=== PATIENT | female | born 1990 | race Caucasian/White ===

== ENCOUNTER 2023-04-14 01:42 | Emergency (ER) | payer OTHER, SELFPAY ==
[2023-04-14 02:06] VITALS: BP 151/85; PULSE 90; RESP 20; TEMP 36.6; O2SAT 98; BMI 30.2
[2023-04-14 05:52] VITALS: BP 155/97; PULSE 81; RESP 20; TEMP 36.8; O2SAT 97
--- NOTE | 2023-04-14 05:53 | PC.NURSE ---
upon pt re-assessment pt reported headache and chest pain, labs ordered and EKG
[2023-04-14 06:16] LABS: MANUAL DIFF FLAG NO
[2023-04-14 06:18] LABS: Basophils Percent Auto 0.4 % (0-2); Eosinophils Percent Auto 0.5 % (0-4); Hematocrit 42.5 % (37.0-47.0); Hemoglobin 13.8 g/dl (12.0-16.0); Imm Gran Abs Auto 0.03 X10*3/uL (0.00-0.03); Imm Gran Pct Auto 0.4 % (0.0-0.4); Lymphocytes Absolute Auto 1.4 X10*3/uL (1.2-4.9); Lymphocytes Percent Auto 17.7 % (20-40); Mean Corpuscular HGB Conc 32.5 g/dl (31.0-35.0); Mean Corpuscular Hemoglobin 32.2 pg (27.0-33.0); Mean Corpuscular Volume 99.1 fL (80.0-98.0); Mean Platelet Volume 11.2 fL (9.4-12.3); Monocytes Absolute Auto 0.6 X10*3/uL (0.1-1.2); Monocytes Percent Auto 7.5 % (2-11); Neutrophils Absolute Auto 5.7 x10*3/uL (2.0-8.3); Neutrophils Percent Auto 73.5 % (45-73); Platelet Count 138 X10*3/uL (160-400); Red Blood Count 4.29 X10*6/uL (4.20-5.50); Red Cell Distribution Width 16.2 % (11.0-16.0); White Blood Count 7.7 X10*3/uL (4.8-10.8)
[2023-04-14 06:31] LABS: Alanine Aminotransferase 77 U/L (0-31); Albumin Level 4.5 g/dL (3.5-5.0); Alkaline Phosphatase 76 U/L (39-117); Anion Gap 15 (12-20); Aspartate Amino Transferase 46 U/L (5-31); Bilirubin Total 0.5 mg/dL (0.0-1.0); Blood Urea Nitrogen 13 mg/dL (9-16); Calcium 8.7 mg/dL (8.4-10.2); Carbon Dioxide 22 mmol/L (22-29); Chloride 105 mmol/L (96-108); Creatinine Clr Calc Pharmacy 92.2; Estimated Glomerular Filt Rate > 60; Glucose Fasting 100 mg/dL (60-99); Sodium 138 mmol/L (135-145); Total Protein 8.5 g/dL (6.5-8.0)
[2023-04-14 06:38] LABS: Troponin-I High Sensitivity < 2.7 ng/L (<3.5-17.0)
[2023-04-14 06:54] VITALS: PULSE 99; RESP 16; O2SAT 97
--- NOTE | 2023-04-14 06:55 | PC.NURSE ---
pt changed into hospital gown. reporting R. sided cp. placed on heart monitor. nsr. lung sounds cta. resp even and unlabored. pt reports hx anxiety/panic attacks; has been switching meds with pcp recently. pt does not think sx are related to her anxiety. vss. call jefferson within reach. awaiting primary eval by ed provider.
--- NOTE | 2023-04-14 08:18 | ED.GENADULT ---
HPI - General Adult General Chief complaint: Anxiety Stated complaint: dizziness, light headed Time Seen by Provider: 04/14/23 06:58 Source: patient Mode of arrival: ambulatory Limitations: no limitations History of Present Illness HPI narrative: Patient is a 32-year-old female presenting to the emergency department with complaint of headache and feeling shaky. States she was feeling shaky yesterday and symptoms worsened while here. States she initially felt symptoms were similar to a panic attack but is complaining of ongoing shakiness, chest tightness, and headache. Denies headache worst at onset, denies worst headache of life. Denies headache worse with standing or worse in the morning. Denies fevers or weight loss. Denies chest pain or palpitations. Denies abdominal pain, nausea, vomiting, diarrhea. Denies recent calf pain or swelling. Denies history of asthma. MD complaint: chest tightness Onset (ago): hour(s) Location: head and chest Severity: moderate Quality: aching Pain Consistency: constant Associated symptoms: other (Shakiness) Treatments prior to arrival: none Related Data Allergies Allergy/AdvReac Type Severity Reaction Status Date / Time azithromycin [AZITHROMYCIN] Allergy Unknown RASH Unverified 01/13/20 19:25 erythromycin base Allergy Unknown RASH Unverified 01/13/20 19:25 [ERYTHROMYCIN BASE] Review of Systems Review of Systems: As per HPI. Yes all other systems are reviewed and are negative Constitutional: Constitutional: Reports as per HPI [facility] Social History Social History Advance Directives: Yes Advance Directives Information Provided: Yes Advance Directives on File: No Physical Exam ED Vital Signs: Vital Signs - 24 hr 04/14/23 02:06 04/14/23 05:52 04/14/23 06:54 Temperature 97.8 F 98.2 F Pulse Rate 90 81 99 Respiratory Rate 20 20 16 Blood Pressure 151/85 H 155/97 H Pulse Oximetry 98 97 97 Oxygen Delivery Method Room Air Room Air Room Air 04/14/23 09:21 Temperature Pulse Rate 80 Respiratory Rate 16 Blood Pressure 153/91 H Pulse Oximetry 98 Oxygen Delivery Method Room Air BMI result Body Mass Index 30.2 Vital signs have been reviewed and appear to be correct. Blood pressure elevated. Heart rate normal. Respiratory rate normal. Temperature normal. Oxygen saturation normal. Const General: cooperative, healthy appearing and no acute distress Orientation/consciousness: oriented to person, oriented to place, oriented to time and patient oriented x3 Limitations: no limitations HENWY Head: Yes normocephalic and Yes atraumatic Ears: external ears normal General nose exam: Normal external nose present Face and sinus: Yes face symmetric Mouth: oropharynx normal and moist mucous membranes Throat: Yes uvula midline Eyes Pupils: Equal, round and reactive pupils present Neck Neck: Yes normal visual inspection, Yes no meningeal signs and Yes supple Resp Effort & Inspection: normal respiratory effort and able to speak in complete sentences Auscultation: clear to auscultation bilaterally Cardio Rate: regular rate Rhythm: regular rhythm Heart sounds: S1 normal heart sound present and S2 normal heart sound present GI Palpation (GI): Soft to palpation and nontender Auscultation: normoactive bowel sounds General: Yes no CVA tenderness Back/Spine/Pelvis Back: no CVA tenderness Skin General skin exam: elasticity normal and turgor normal Neuro General: oriented to person, oriented to place, oriented to time, patient oriented x3, gait normal, tone normal, moves all extremities, Normal light touch and pain sensation, no meningeal signs, no focal motor deficits, CN's II-XI intact bilaterally and deep tendon reflexes 2+ bilaterally Cranial nerves: Yes Equal, round and reactive pupils present Cognition (Neuro): normal cognition Motor exam (neuro): 5/5 motor strength present throughout, Pronator motor function not present, Normal motor muscle tone present throughout and Motor abnormalities not present Sensory Exam: Normal double simultaneous stimulation for sensation Extrem General: Yes full ROM, Yes no pedal edema and Yes no calf tenderness Psych Mental Status: mental status grossly normal Affect: normal affect Thought process: Normal thought process present Medications Administered Discontinued Medications Generic Name Dose Route Start Last Admin Trade Name Tylerq PRN Reason Stop Dose Admin Diphenhydramine HCl 25 mg 04/14/23 08:39 04/14/23 09:20 Diphenhydramine Hcl 50 Mg/Ml Vial IVPUSH 04/14/23 08:40 25 mg ONCE ONE Administration Sodium Chloride 1,000 mls @ 999 mls/hr 04/14/23 08:45 04/14/23 10:26 Ns IV 04/14/23 09:45 Infused .Q1H1M GLEN Infusion Ketorolac Tromethamine 15 mg 04/14/23 09:51 04/14/23 10:26 Ketorolac Tromethamine 15 Mg/Ml Vial IVPUSH 04/14/23 09:52 15 mg ONCE ONE Administration Metoclopramide HCl 10 mg 04/14/23 08:37 04/14/23 09:21 Metoclopramide Hcl 10 Mg/2 Ml Vial IVPUSH 04/14/23 08:38 10 mg ONCE ONE Administration Medical Decision Making Medical Decision Making [facility] Narrative: Patient is a 32-year-old female presenting to the emergency department with complaint of headache and feeling shaky. On exam patient is awake, A+Ox3, VS WNL, afebrile, normal neurological exam without focal deficits, physical exam findings as above. Given reported symptoms and physical exam findings, initial differential includes ACS, anxiety, viral illness, tension headache, . Labs notable for no leukocytosis, no anemia, no significant electrolyte abnormalities, negative HCG, negative troponin x2. Swabs for flu and COVID both negative. EKG shows sinus rhythm with frequent PVCs, RBBB. HEART score 1. Patient reports improvement in symptoms after IV fluids and medications in the ED. Feel patient is stable for discharge home, likely anxiety. Instructed patient to follow-up with primary care provider. Will refer to cardiology for ongoing symptoms. Return precautions discussed at bedside. Patient verbalized understanding of and agreement with plan. Differential Diagnosis Differential Diagnoses: The differential diagnosis associated with the presentation includes As per MDM. Lab Data [facility] Lab Attestation statement: I reviewed the patient's lab results. As per [facility]. 04/14/23 06:10 04/14/23 06:10 Labs: Lab Results 04/14/23 04/14/23 Range/Units 06:10 09:11 WBC 7.7 (4.8-10.8) X10*3/uL RBC 4.29 (4.20-5.50) X10*6/uL Hgb 13.8 (12.0-16.0) g/dl Hct 42.5 (37.0-47.0) % MCV 99.1 H (80.0-98.0) fL MCH 32.2 (27.0-33.0) pg MCHC 32.5 (31.0-35.0) g/dl RDW 16.2 H (11.0-16.0) % Plt Count 138 L (160-400) X10*3/uL MPV 11.2 (9.4-12.3) fL Immature Gran % (Auto) 0.4 (0.0-0.4) % Neut % (Auto) 73.5 H (45-73) % Lymph % (Auto) 17.7 L (20-40) % [place] % (Auto) 7.5 (2-11) % Eos % (Auto) 0.5 (0-4) % Baso % (Auto) 0.4 (0-2) % Lymph # (Auto) 1.4 (1.2-4.9) X10*3/uL [place] # (Auto) 0.6 (0.1-1.2) X10*3/uL Eos # (Auto) 0.0 (0.0-0.4) X10*3/uL Baso # (Auto) 0.0 (0.0-0.2) X10*3/uL Abs Immat Gran (auto) 0.03 (0.00-0.03) X10*3/uL Absolute Neuts (auto) 5.7 (2.0-8.3) x10*3/uL Absolute Nucleated RBC 0.000 (0.0-0.012) X10*3/uL Nucleated RBC % (auto) 0.0 (0.0-0.2) /100WBC Sodium 138 (135-145) mmol/L Potassium 4.0 (3.3-5.1) mmol/L Chloride 105 (96-108) mmol/L Carbon Dioxide 22 (22-29) mmol/L Anion Gap 15 (12-20) BUN 13 (9-16) mg/dL Creatinine 0.79 (0.5-1.4) mg/dL Estim Creat Clear Calc 92.2 Estimated GFR > 60 Fasting Glucose 100 H (60-99) mg/dL Calcium 8.7 (8.4-10.2) mg/dL Total Bilirubin 0.5 (0.0-1.0) mg/dL AST 46 H (5-31) U/L ALT 77 H (0-31) U/L Alkaline Phosphatase 76 (39-117) U/L Troponin I High Sens < 2.7 < 2.7 (<3.5-17.0) ng/L Total Protein 8.5 H (6.5-8.0) g/dL Albumin 4.5 (3.5-5.0) g/dL Beta HCG, Quant < 2 mIU/mL COVID-19 (SEJAL) Negative (Negative) COVID-19 Clin Com See Note Influenza Type A (NAJMA) Negative (Negative) Influenza Type B (NAJMA) Negative (Negative) Influenza A & B Note See Note Independent Interpretation I performed an independent interpretation of an: EKG (sinus rhythm with frequent PVCs, RBBB, rate 81bpm, normal PT interval) External Record Review External record reviewed: Inpatient record, Office record and Outpatient record Scores Heart Score History: -0- slightly suspicious ECG: -1- non specific repolarization disturbance Age: -0- < or = 45 Risk factory: -0- no risk factors known Troponin: -0- < or = normal limit Score: 1 Risk: 1.7% Discharge Plan Discharge Clinical Impression: Acute anxiety, Headache Patient Disposition: Home, Self-Care Instructions: Acute Headache (DC), Panic Disorder (ED) Additional Instructions: You have been evaluated in the emergency department today for headache and chest tightness. Your evaluation did not show evidence of medical conditions requiring emergent intervention at this time, and your pain improved with medication in the ED. We recommend you take 600 mg ibuprofen every 6 hours or Tylenol 650 mg every 6 hours as needed for pain. If needed, you can alternate these medications so that you take 1 medication every 3 hours. For instance, at noon take ibuprofen, then at 3:00 p.m. take Tylenol, then at 6:00 p.m. take ibuprofen. Please follow-up with your primary care provider within 2 days. Return to the emergency department if you experience worsening or uncontrolled pain, vision changes, recurrent vomiting, difficulty with normal activities, abnormal behavior, difficulty walking, numbness, weakness, or any other concerning symptoms. Follow up with cardiology for any ongoing symptoms. Referrals: [facility] Cardiovascular Services [Provider Group]
[2023-04-14] MEDS: 0.9 % Sodium Chloride 1,000 ML 999 ML IV (09:20)
[2023-04-14] MEDS: diphenhydrAMINE HCL 50 MG/ML VIAL 25 MG IVPUSH (09:20)
[2023-04-14 09:21] VITALS: BP 153/91; PULSE 80; RESP 16; O2SAT 98
[2023-04-14] MEDS: Metoclopramide HCl 10 MG/2 ML VIAL IVPUSH (09:21)
[2023-04-14 09:33] LABS: COVID-19 Test Negative (Negative); IDNOW Serial# 9DB6401D
[2023-04-14 09:43] LABS: HCG Quantitative < 2 mIU/mL; Troponin-I High Sensitivity < 2.7 ng/L (<3.5-17.0)
[2023-04-14 09:54] LABS: IDNOW Serial# 58CA691E; Influenza A Negative (Negative); Influenza B2 Negative (Negative)
--- NOTE | 2023-04-14 10:02 | ECG_ITS ---
Test Reason : CHEST PAIN Blood Pressure : / mmHG Vent. Rate : 081 BPM Atrial Rate : 081 BPM P-R Int : 136 ms QRS Dur : 134 ms QT Int : 426 ms P-R-T Axes : 025 079 089 degrees QTc Int : 494 ms Sinus rhythm with frequent Premature ventricular complexes Right bundle branch block Cannot rule out Inferior infarct , age undetermined Abnormal ECG No previous ECGs available Referred By: Nelly Lewis Electronically Signed By:CALLI TIJERINA MD
[2023-04-14] MEDS: Ketorolac Tromethamine 15 MG/ML VIAL IVPUSH (10:26)
== END 2023-04-14 11:16 | disposition home or self-care (01) ==
PROVIDERS: Registered Nurse Emergency; Emergency Provider Emergency Medicine
DX: F41.1 Generalized anxiety disorder (principal); F43.0 Acute stress reaction; R51.9 Headache, unspecified; Z11.52 Encounter for screening for COVID-19; Z20.822 Contact with and (suspected) exposure to COVID-19; Z79.899 Other long term (current) drug therapy
CPT/HCPCS: 36415; 80053; 84484; 84702; 85025; 87502; 87635; 93005; 96361; 96374; 96375; 99284; J1200; J1885; J2765

== ENCOUNTER → 2023-04-14 10:02 | Outpatient (BNV) | payer OTHER, SELFPAY | PROVIDERS: Emergency Provider Emergency Medicine; Visit Provider Internal Medicine Cardiovascular Disease | DX: R42 Dizziness and giddiness (principal) | CPT/HCPCS: 93010 ==

== ENCOUNTER 2024-08-10 17:51 | Emergency (ER) | payer OTHER, SELFPAY ==
--- NOTE | ~2024-08-10 | CT_ITS ---
CLINICAL HISTORY: r flank pain CT abdomen and pelvis without contrast Comparison: None Findings: No consolidation or effusion. Cholecystectomy. No biliary duct dilatation. Enlarged heterogeneous spleen measuring 18 cm in the craniocaudal dimension with diffuse hypodensities in the parenchyma. Left kidney is absent. No hydronephrosis or urolithiasis of the right kidney. Liver, pancreas, and adrenal glands are within normal limits. No bowel obstruction, pneumoperitoneum, or pneumatosis. Normal appendix. Small fat containing umbilical hernia. Uterus is deviated to the right. Urinary bladder is underdistended. Trace free fluid in the pelvis, likely physiologic. No acute fracture. IMPRESSION: Enlarged heterogeneous spleen (18 cm) with diffuse hypodensities. Differential considerations include lymphoproliferative disorder, reactive splenomegaly, splenic sequestration. This document has been electronically signed by: Devorah Dobson MD on 08/10/2024 21:57:16
[2024-08-10 17:59] VITALS: BP 136/72; PULSE 64; O2SAT 97
[2024-08-10 18:10] VITALS: BP 135/79; PULSE 86; RESP 16; TEMP 36.6; O2SAT 98; BMI 31.3
--- NOTE | 2024-08-10 18:28 | ED.ABDPAIN ---
HPI - Abdominal Pain General Chief Complaint: Abdominal Pain Stated Complaint: R flank pain Time Seen by Provider: 08/10/24 18:07 Source: patient Mode of arrival: ambulatory Limitations: no limitations History of Present Illness ED Provider: HPI narrative: Patient's history of remote kidney stone complaining of pain in the right flank area took ibuprofen at home without much relief pain is radiating to the right lower abdomen no fever no chills no dysuria no hematuria Related Data Previous Rx's ?Medication ?Instructions ?Recorded nitrofurantoin 100 mg PO BID 7 days #14 caps 08/10/24 monohydrate/macrocrystals 100 mg capsule (Macrobid) Allergies Allergy/AdvReac Type Severity Reaction Status Date / Time sulfamethoxazole Allergy Severe Anaphylaxis Verified 08/10/24 18:12 [From Bactrim] trimethoprim [From Bactrim] Allergy Severe Anaphylaxis Verified 08/10/24 18:12 azithromycin [AZITHROMYCIN] Allergy Unknown RASH Verified 08/10/24 18:12 erythromycin base Allergy Unknown RASH Verified 08/10/24 18:12 [ERYTHROMYCIN BASE] Review of Systems Review of Systems Yes all other systems are reviewed and are negative Physical Exam ED Vital Signs: Vital Signs - 24 hr 08/10/24 18:10 08/10/24 20:17 08/10/24 22:11 Temperature 97.8 F 98.0 F 98.2 F Pulse Rate 86 58 65 Respiratory Rate 16 16 16 Blood Pressure 135/79 115/60 127/73 Pulse Oximetry 98 99 98 Oxygen Delivery Method Room Air Room Air Room Air 08/10/24 22:15 Temperature 98.2 F Pulse Rate 65 Respiratory Rate 16 Blood Pressure 127/73 Pulse Oximetry 98 Oxygen Delivery Method Room Air BMI result Body Mass Index 31.3 Appearance: Alert. Oriented X3. No acute distress. Eyes: PERRLA, No Nystagmus ENT: Pharynx normal. Oral Mucosa moist Neck: Normal inspection. Neck supple. CVS: Normal heart rate and rhythm. Pulses normal. Respiratory: No respiratory distress. Equal air entry bilateral, no wheezing/rales/rhonchi Abdomen: Soft and nontender. Bowel sounds are present, no mass palpable, right CVA tenderness Skin: Skin warm and dry. Normal skin color. Normal skin turgor. Extremities: No lower extremity edema. No calf tenderness Neuro: Oriented X 3. No motor deficit. No sensory deficit.No cerebellar signs , cranial nerves II-XII intact Medical Decision Making Medical Decision Making [facility] Narrative: Patient's right flank pain with history of remote kidney stone workup showed thrombocytopenia with 84k and splenomegaly no kidney stone or cyst was seen patient advised to follow up with PCP will treat for UTI Differential Diagnosis Differential Diagnoses: The differential diagnosis associated with the presentation includes Lab Data [facility] Lab Attestation statement: I reviewed the patient's lab results. 08/10/24 18:53 08/10/24 18:53 Labs: Lab Results 08/10/24 08/10/24 Range/Units 18:31 18:53 WBC 5.4 (4.8-10.8) X10*3/uL RBC 3.64 L (4.20-5.50) X10*6/uL Hgb 11.9 L (12.0-16.0) g/dl Hct 34.2 L (37.0-47.0) % MCV 94.0 (80.0-98.0) fL MCH 32.7 (27.0-33.0) pg MCHC 34.8 (31.0-35.0) g/dl RDW 12.7 (11.0-16.0) % Plt Count 84 L D (160-400) X10*3/uL MPV 10.8 (9.4-12.3) fL Immature Gran % (Auto) 0.2 (0.0-0.4) % Neut % (Auto) 69.3 (45-73) % Lymph % (Auto) 21.2 (20-40) % [place] % (Auto) 7.4 (2-11) % Eos % (Auto) 1.5 (0-4) % Baso % (Auto) 0.4 (0-2) % Lymph # (Auto) 1.1 L (1.2-4.9) X10*3/uL [place] # (Auto) 0.4 (0.1-1.2) X10*3/uL Eos # (Auto) 0.1 (0.0-0.4) X10*3/uL Baso # (Auto) 0.0 (0.0-0.2) X10*3/uL Abs Immat Gran (auto) 0.01 (0.00-0.03) X10*3/uL Absolute Neuts (auto) 3.7 (2.0-8.3) x10*3/uL Absolute Nucleated RBC 0.000 (0.0-0.012) X10*3/uL Nucleated RBC % (auto) 0.0 (0.0-0.2) /100WBC Smear Tech's Comments VERIFIED Sodium 141 (135-145) mmol/L Potassium 3.8 (3.3-5.1) mmol/L Chloride 108 (96-108) mmol/L Carbon Dioxide 25 (22-29) mmol/L Anion Gap 12 (12-20) BUN 7 L (9-16) mg/dL Creatinine 0.80 (0.5-1.4) mg/dL Estim Creat Clear Calc 91.9 Estimated GFR > 60 Random Glucose 115 (60-115) mg/dL Calcium 8.7 (8.4-10.2) mg/dL Lipase 22 (8-78) U/L Urine Color Yellow Urine Appearance Clear Urine pH 7.5 (5.0-9.0) Ur Specific [place] 1.010 (1.005-1.025) Urine Protein Negative (Neg-Trace) mg/dL Urine Glucose (UA) Negative (Negative) mg/dL Urine Ketones Negative (Negative) mg/dL Urine Blood Negative (Negative) Urine Nitrite Negative (Negative) Ur Leukocyte Esterase Large (3+) H (Negative) Urine RBC 0-2 (0-2) /HPF Urine WBC 11-20 H (0-5) /HPF Ur Squamous Epith Cells 3-5 (0-2) /HPF Urine Bacteria None Seen (None Seen) Hyaline Casts 0-2 (0-2) /LPF Urine Test NEGATIVE (NEGATIVE) Independent Interpretation I performed an independent interpretation of an: CT Scan Radiology Impression Discussion of test interpretation with radiology: I have reviewed the radiologist's reading. Radiologist Impression: [address] [address] [address] Scan Report Signed Patient: BriiJuly MR#: [id number] : 1990 Acct:[id number] Age/Sex: 33 / F ADM Date: 08/10/24 Loc: HO.ED Attending Dr: Ordering Physician: Duke Liu MD Date of Service: 08/10/24 Procedure(s): CT abdomen pelvis wo IV con Accession Number(s): [id number] cc: Physician,None ; Duke Liu MD~ Report Number: [id number]: Total DLP = 577.00 mGy-cm CLINICAL HISTORY: r flank pain CT abdomen and pelvis without contrast Comparison: None Findings: No consolidation or effusion. Cholecystectomy. No biliary duct dilatation. Enlarged heterogeneous spleen measuring 18 cm in the craniocaudal dimension with diffuse hypodensities in the parenchyma. Left kidney is absent. No hydronephrosis or urolithiasis of the right kidney. Liver, pancreas, and adrenal glands are within normal limits. No bowel obstruction, pneumoperitoneum, or pneumatosis. Normal appendix. Small fat containing umbilical hernia. Uterus is deviated to the right. Urinary bladder is underdistended. Trace free fluid in the pelvis, likely physiologic. No acute fracture. IMPRESSION: Enlarged heterogeneous spleen (18 cm) with diffuse hypodensities. Differential considerations include lymphoproliferative disorder, reactive splenomegaly, splenic sequestration. This document has been electronically signed by: Devorah Dobson MD on 08/10/2024 21:57:16 Medications Administered Discontinued Medications Generic Name Dose Route Start Last Admin Trade Name Freq PRN Reason Stop Dose Admin Nitrofurantoin Macrocrystals 100 mg 08/10/24 20:23 08/10/24 20:41 Nitrofurantoin Monohyd/M-Cryst 100 Mg Capsule PO 08/10/24 20:24 100 mg ONCE ONE Administration Oxycodone HCl 5 mg 08/10/24 20:23 08/10/24 20:41 Oxycodone Hcl Immed Release 5 Mg Tablet PO 08/10/24 20:24 5 mg ONCE ONE Administration Discharge Plan Discharge Clinical Impression: UTI (urinary tract infection) Patient Disposition: Home, Self-Care Instructions: Urinary Tract Infection in Women (ED) Additional Instructions: Drink plenty of fluids Take antibiotic as prescribed Your platelet counts noticed to been low and spleen noticed to be enlarged cause unknown Do not take ibuprofen Follow up with PCP for further management Prescriptions: New nitrofurantoin monohyd/m-cryst [Macrobid] 100 mg capsule 100 mg PO BID 7 Days Qty: 14 0RF Rx Instructions: must administer with a meal/food Interventions: ED Discharge Assessment Last Done: 08/10/24 22:15 Discharge Date/Time: 08/10/24 22:16 Print Language: Brazilian
[2024-08-10 18:47] LABS: Appearance Urine Clear; Color Urine Yellow; Glucose Urine UA Negative (Negative); Leukocyte Esterase Urine Large (3+) (Negative); Nitrite Urine Negative (Negative); PH 7.5 (5.0-9.0); UMIC TRIGGER UACC YES; Urine Blood Negative (Negative); Urine Ketones Negative (Negative); Urine Protein Negative (Neg-Trace)
[2024-08-10 18:53] LABS: Bacteria Urine None Seen (None Seen); Hyaline Casts Urine 0-2 /LPF (0-2); RBC Urine 0-2 /HPF (0-2); UACC Culture Trigger YES
[2024-08-10 18:57] LABS: UPreg QC Valid YES; Urine Pregnancy NEGATIVE (NEGATIVE)
[2024-08-10 18:58] LABS: Basophils Percent Auto 0.4 % (0-2); Monocytes Absolute Auto 0.4 X10*3/uL (0.1-1.2); Neutrophils Absolute Auto 3.7 x10*3/uL (2.0-8.3); PLT CLUMP 1; SCAN SMEAR FLAG 1
[2024-08-10 19:00] LABS: Eosinophils Absolute Auto 0.1 X10*3/uL (0.0-0.4); Eosinophils Percent Auto 1.5 % (0-4); Hematocrit 34.2 % (37.0-47.0); Hemoglobin 11.9 g/dl (12.0-16.0); Imm Gran Abs Auto 0.01 X10*3/uL (0.00-0.03); Imm Gran Pct Auto 0.2 % (0.0-0.4); Lymphocytes Absolute Auto 1.1 X10*3/uL (1.2-4.9); Lymphocytes Percent Auto 21.2 % (20-40); MANUAL DIFF FLAG SCAN; Mean Corpuscular HGB Conc 34.8 g/dl (31.0-35.0); Mean Corpuscular Hemoglobin 32.7 pg (27.0-33.0); Mean Platelet Volume 10.8 fL (9.4-12.3); Monocytes Percent Auto 7.4 % (2-11); Neutrophils Percent Auto 69.3 % (45-73); Red Blood Count 3.64 X10*6/uL (4.20-5.50); Red Cell Distribution Width 12.7 % (11.0-16.0)
--- OUTSIDE RECORDS SUMMARY | 2024-08-10 19:08 | XMS_ITS | Patient Health Record ---
Author Organization [facility] Address [address] [place] [address] Care Team Providers Care Client Care Manager Name Role Phone Seng Diamond Primary Care Provider [phone] Reason For Referral No Information Medications Medication SIG (Take, Route, Frequency, Duration) Notes Start Date End Date Status MELATONIN 10 MG TABLET SL 30 2 tabs qhs for 30 *please review for potential update for e-prescription and drug interaction check* 11/12/2019 Active XULANE PATCH 150-35 MCG/24 HR 0 21 days/month for 30 *please review for potential update for e-prescription and drug interaction check* 11/11/2019 Active Carisoprodol 350 MG 0 Oral 1 tab qid for 30 11/11/2019 Active ACETAMINOPHEN 500 MG CAPLET 0 4 tabs 1/week prn for 30 *please review for potential update for e-prescription and drug interaction check* 11/11/[address] 20 MG CAP 90 Start with 1 cap qam x 1 week, then 2 caps qam x 1 week, finally 3 caps qam. For pain. for 0 *please review for potential update for e-prescription and drug interaction check* 01/05/2020 Active Plan Of Treatment No Information Insurance Providers Payer Name Payer Address Payer Phone Subscriber Number Group Number Insured Name Patient Relationship to Insured Coverage Start Date Coverage End Date [place] [employer] [address] [place] [address] [id number] July Self - patient is the insured
--- OUTSIDE RECORDS SUMMARY | 2024-08-10 19:08 | XMS_ITS | Clinical Summary ---
Author Organization [facility] Address [address] [place] [phone] Phone Care Team Providers Care Orthodontic Lab Technician Name Role Phone Unavailable Primary Care Provider Unavailabl e Immunizations Immunization Administration Dates Next Due DTaP 01/06/1995, 2,10/16/1990,07/03,02/04/1990 HPV, Quadrivalent 08/30/2008,01/25/2008,11/23/19 08 Hep B, ped/adol 04/26/1996,01/06/1995,08/29/1994 Hib (PRP-T) 03/09/1991, 1,08/26/1990,07/03 MMR 01/06/1995,03/09/1991 Meningococcal Conj (Menactra) MCV4P 01/25/2008 OPV 01/06/1995, 2,07/03/1990,02/04 Td (adult) (Tenivac), 5 Lf t etanus toxoid, PF, adsorbed 08/14/2001 Tdap 01/25/2008 Varicella 04/28/1996 Family History Relation Name Status Comments Father Alive estranged, pt d oes not get along with him. Mother Alive healthy age: 38 Social History Tobacco Use Types Packs/Day Years Used Date Smoking Tobacco: Never Assessed Comments Unknown Sex and Gender Information Value Date Recorded Sex Assigned at Not on file Legal Sex Female 6:09 PM EDT Gender Identity Not on file Sexual Orientation Not on file Plan of Treatment Health Maintenance Due Date Last Done Comments Varicella Vaccines (2 of 2 - 2-dose childhood series) 07/21/1996 04/28/1996 DTaP,Tdap,and Td Vaccines (7 - Td or Tdap) 01/24/2018 01/25/2008, 08/14/2001, 01/06/1995, Additional history exists Influenza Vaccines (#1) 2023 COVID-19 Vaccine ( season) 2023 HIB Vaccines Completed 03/09/1991, 05/1990, 08/26/1990, Additional history exists IPV Vaccines Completed 01/06/1995, 08/26, 07/03/1990, Additional history exists MMR Vaccines Completed 01/06/1995, 03/09/1991 Hepatitis B Vaccines Completed 04/26/1996, 01/06/1995, 08/29/1994 Meningococcal Vaccine Completed 01/25/2008 HPV Vaccines Completed 08/30/2008, 12/28, 11/23/2007 Hepatitis A Vaccines Aged Out No long er eligible based on patient's age to complete this topic Men B Vaccine Aged Out No longer elig ible based on patient's age to complete this topic Pneumococcal Vaccine Aged Out No long er eligible based on patient's age to complete this topic
--- OUTSIDE RECORDS SUMMARY | 2024-08-10 19:08 | XMS_ITS | Encounter Summary ---
Author Organization [facility] Address [address] [place] [phone] Phone Care Team Providers Care Medical Assistant Name Role Phone Unavailable Primary Care Provider Unavailabl e Encounter Details Date Type Department Care Team ([facility] st Contact Info) Description 09/14/2017 Conversion Encounter [facility] [address] [address] Social History Tobacco Use Types Packs/Day Years Used Date Smoking Tobacco: Never Assessed Comments Unknown Sex and Gender Information Value Date Recorded Sex Assigned at Not on file Legal Sex Female 6:09 PM EDT Gender Identity Not on file Sexual Orientation Not on file documented as of this encounter Plan of Treatment Not on file documented as of this encounter Visit Diagnoses Not on filedocumented in this encounter
[2024-08-10 19:09] LABS: Anion Gap 12 (12-20); Blood Urea Nitrogen 7 mg/dL (9-16); Calcium 8.7 mg/dL (8.4-10.2); Carbon Dioxide 25 mmol/L (22-29); Chloride 108 mmol/L (96-108); Creatinine Clr Calc Pharmacy 91.9; Estimated Glomerular Filt Rate > 60; Glucose Random 115 mg/dL (60-115); Lipase 22 U/L (8-78); Potassium 3.8 mmol/L (3.3-5.1); Sodium 141 mmol/L (135-145)
[2024-08-10 19:10] LABS: White Blood Count 5.4 X10*3/uL (4.8-10.8)
[2024-08-10 19:18] LABS: Platelet Count 84 X10*3/uL (160-400); SLIDE REVIEW VERIFIED
[2024-08-10 20:17] VITALS: BP 115/60; PULSE 58; RESP 16; TEMP 36.7; O2SAT 99
[2024-08-10] MEDS: oxyCODONE HCl Immed Release 5 MG TABLET PO (20:41)
[2024-08-10] MEDS: Nitrofurantoin Monohyd/M-Cryst 100 MG CAPSULE PO (20:41)
[2024-08-10 22:11] VITALS: BP 127/73; PULSE 65; RESP 16; TEMP 36.8; O2SAT 98
[2024-08-10 22:15] VITALS: BP 127/73; PULSE 65; RESP 16; TEMP 36.8; O2SAT 98
== END 2024-08-10 22:16 | disposition home or self-care (01) ==
PROVIDERS: Emergency Provider Internal Medicine
DX: N39.0 Urinary tract infection, site not specified (principal); Z87.442 Personal history of urinary calculi
CPT/HCPCS: 36415; 74176; 80048; 81001; 81025; 83690; 85025; 87086; 99284

== ENCOUNTER → 2024-08-10 20:23 | Outpatient (BNV) | payer OTHER, SELFPAY | PROVIDERS: Emergency Provider Internal Medicine; Visit Provider Radiology Diagnostic Radiology | DX: R16.1 Splenomegaly, not elsewhere classified (principal) | CPT/HCPCS: 74176 ==